=== PATIENT | male | born 1955 | race Caucasian/White ===

== ENCOUNTER 2019-11-03 07:16 | Day surgery (SDC) | payer OTHER ==
[~2019-11-03 07:16] MED LIST: Lactated Ringers 1,000 ML IV SCH; Lidocaine 1%/Sod Bicarbonate in NS 8.4% 1 ML Syringe IDERM PRN; Sodium Chloride 0.9% 10 ML Syringe FLUSH PRN
[2019-11-03] MEDS ORDERED: Lidocaine 1% 4 ML ONE (07:22)
[2019-11-03] MEDS ORDERED: fentaNYL 100 MCG/2 ML SDV ONE (07:23)
[2019-11-03] MEDS ORDERED: Propofol 200 MG/20 ML SDV ONE ×2 (07:23→09:15)
--- NOTE | 2019-11-03 07:36 | PCM.PREANE ---
Preanesthetic Assessment - Anesthesia/Transfusion/Family Hx Anesthesia History: Prior Anesthesia Without Reaction Family History of Anesthesia Reaction: No Transfusion History: No Prior Transfusion(s) Intubation History: Unknown - Review of Systems General: No Symptoms Pulmonary: No Symptoms (COPD, GAYATRI, quit smoking in 2014) Cardiovascular: No Symptoms (IN with stents placed 1999, 2013, HTN, High cholesterol) Gastrointestinal: No Symptoms Neurological: Numbness (left 3rd and 4th fingers missing tips.) Other: Reports: Diabetes (AM blood sugar= 91 @ 0740), Sinus Problem (allergic rhinitis) - Physical Assessment NPO Status Date: 11/02/19 NPO Status Time: 04:30 (prep) Vital Signs: HR: 62 BP: 173/88 Resp: 16 Temp: 97 Sat: 98% Height: 1.78 m Weight: 95 kg ASA Class: 3 Mental Status: Alert & Oriented x3 Airway Class: Mallampati = 2 Dentition: Reports: Normal Dentition, Caries Thyro-Mental Finger Breadths: 3 Mouth Opening Finger Breadths: 3 ROM/Head Extension: Full Lungs: Clear to Auscultation, Normal Respiratory Effort Cardiovascular: Regular Rate, Regular Rhythm, No Murmurs - Lab Values: All labs reviewed and noted and within acceptable ranges to proceed with procedure. - Imaging/EKG Impressions: Echocardiogram: EF= 60-65%, mildly dilated left atrium, mild MV regurgitation. EKG: SB rate=54 - Allergies Allergies/Adverse Reactions: Allergies Allergy/AdvReac Type Severity Reaction Status Date / Time bee venom protein (honey bee) Allergy Cannot Verified 10/31/19 14:24 Remember - Anesthesia Plan Pre-Op Medication Ordered: Beta Leidy Beta Leidy: Carvedilol Med Last Dose Date: 11/01/19 Med Last Dose Time: 05:30 - Acknowledgements Anesthesia Type Planned: MAC Pt an Appropriate Candidate for the Planned Anesthesia: Yes Alternatives and Risks of Anesthesia Discussed w Pt/Guardian: Yes Pt/Guardian Understands and Agrees with Anesthesia Plan: Yes PreAnesthesia Questionnaire HEENT History: Reports: Allergic Rhinitis, Other (See Below) Other HEENT History: left ear cellulitis, hearing loss bilaterally, otitis externa, otosclerosis Cardiovascular History: Reports: CAD, High Cholesterol, Hypertension, [place], Stents Respiratory History: Reports: COPD, Sleep Apnea Gastrointestinal History: Reports: Other (See Below) Other Gastrointestinal History: bloating Genitourinary History: Reports: None 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 Musculoskeletal History: Reports: Arthritis, Gout Neurological History: Reports: None Psychiatric History: Reports: Anxiety, Depression Endocrine/Metabolic History: Reports: Diabetes, Type II Hematologic History: Reports: None Immunologic History: Reports: None Oncologic (Cancer) History: Reports: None Dermatologic History: Reports: None - Past Surgical History Head Surgeries/Procedures: Reports: None HEENT Surgical History: Reports: Other (See Below) Other HEENT Surgeries/Procedures: tymphanoplasty Cardiovascular Surgical History: Reports: None Respiratory Surgical History: Reports: None GI Surgical History: Reports: EGD, Hernia Repair/Other Female Surgical History: Reports: None Male Surgical History: Reports: None Endocrine Surgical History: Reports: None Neurological Surgical History: Reports: None Other Musculoskeletal Surgeries/Procedures:: ankle surgery, finger surgery, clavicle fracture repair Oncologic Surgical History: Reports: None Dermatological Surgical History: Reports: None - SUBSTANCE USE Smoking Status *Q: Current Some Day Smoker Tobacco Use Within Last Twelve Months: Snuff/Dip Recreational Drug Use History: No - HOME MEDS Home Medications: Home Meds Aspirin [Halfprin] 81 mg PO DAILY 02/20/15 [History] Losartan [Cozaar] 37.5 mg PO DAILY 02/20/15 [History] [place]-3S/DHA/Epa/Fish Oil/D3 [Fish Oil + D3 Softgel] 1 tab PO DAILY 02/20/15 [ History] allopurinoL [Zyloprim] 100 mg PO DAILY 02/20/15 [History] metFORMIN [Glucophage] 500 mg PO BID 02/20/15 [History] Colestipol [Colestipol HCl] 1 gm PO BID 10/31/19 [History] EPINEPHrine [Epipen] 1 dose IM ONETIME PRN 10/31/19 [History] [place]-3/DHA/Epa/Fish Oil [[place] 3 500 Softgel] 500 mg PO DAILY 10/31/19 [History ] Ubidecarenone [Coq-10] 200 mg PO DAILY 10/31/19 [History] atorvaSTATin Calcium [Atorvastatin Calcium] 40 mg PO DAILY 10/31/19 [History] buPROPion HCl [Bupropion Xl] 150 mg PO DAILY 10/31/19 [History] carvediloL [Carvedilol] 6.25 mg PO BID 10/31/19 [History] - CURRENT (IN HOUSE) MEDS Current Meds: Current Medications Lactated Ringer's (Ringers, Lactated) 1,000 mls @ 125 mls/hr IV ASDIRECTED APOLINAR Stop: 11/03/19 23:00 Lidocaine/Sodium Bicarbonate (Buffered Lidocaine 1% In Ns 8.4%) 0.25 ml IDERM ONETIME PRN PRN Reason: Prior to IV Start Stop: 11/03/19 18:00 Sodium Chloride (Saline Flush) 10 ml FLUSH ASDIRECTED PRN PRN Reason: Keep Vein Open Stop: 11/03/19 18:00 Discontinued Medications Fentanyl (Sublimaze) Confirm Administered Dose 100 mcg .ROUTE .STK-MED ONE Stop: 11/03/19 07:24 Lidocaine HCl (Xylocaine-Mpf 1%) Confirm Administered Dose 4 mls @ as directed .ROUTE .STK-MED ONE Stop: 11/03/19 07:23 Propofol (Diprivan 20 Ml) Confirm Administered Dose 200 mg .ROUTE .STK-MED ONE Stop: 11/03/19 07:24
--- NOTE | 2019-11-03 07:48 | PCM.HP.2 ---
H&P History of Present Illness - General Date of Service: 11/03/19 Source of Information: Patient History Limitations: Reports: No Limitations - History of Present Illness Other HPI/Comments: presents for screening colonoscopy as scheduled- no changes to health since clinic visit. - Related Data Allergies/Adverse Reactions: Allergies Allergy/AdvReac Type Severity Reaction Status Date / Time bee venom protein (honey bee) Allergy Cannot Verified 10/31/19 14:24 Remember Home Medications: Home Meds Aspirin [Halfprin] 81 mg PO DAILY 02/20/15 [History] Losartan [Cozaar] 37.5 mg PO DAILY 02/20/15 [History] [place]-3S/DHA/Epa/Fish Oil/D3 [Fish Oil + D3 Softgel] 1 tab PO DAILY 02/20/15 [ History] allopurinoL [Zyloprim] 100 mg PO DAILY 02/20/15 [History] metFORMIN [Glucophage] 500 mg PO BID 02/20/15 [History] Colestipol [Colestipol HCl] 1 gm PO BID 10/31/19 [History] EPINEPHrine [Epipen] 1 dose IM ONETIME PRN 10/31/19 [History] [place]-3/DHA/Epa/Fish Oil [[place] 3 500 Softgel] 500 mg PO DAILY 10/31/19 [History ] Ubidecarenone [Coq-10] 200 mg PO DAILY 10/31/19 [History] atorvaSTATin Calcium [Atorvastatin Calcium] 40 mg PO DAILY 10/31/19 [History] buPROPion HCl [Bupropion Xl] 150 mg PO DAILY 10/31/19 [History] carvediloL [Carvedilol] 6.25 mg PO BID 10/31/19 [History] Past Medical History HEENT History: Reports: Allergic Rhinitis, Other (See Below) Other HEENT History: left ear cellulitis, hearing loss bilaterally, otitis externa, otosclerosis Cardiovascular History: Reports: CAD, High Cholesterol, Hypertension, [place], Stents Respiratory History: Reports: COPD, Sleep Apnea Gastrointestinal History: Reports: Other (See Below) Other Gastrointestinal History: bloating Genitourinary History: Reports: None 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 Musculoskeletal History: Reports: Arthritis, Gout Neurological History: Reports: None Psychiatric History: Reports: Anxiety, Depression Endocrine/Metabolic History: Reports: Diabetes, Type II Hematologic History: Reports: None Immunologic History: Reports: None Oncologic (Cancer) History: Reports: None Dermatologic History: Reports: None - Past Surgical History Head Surgeries/Procedures: Reports: None HEENT Surgical History: Reports: Other (See Below) Other HEENT Surgeries/Procedures: tymphanoplasty Cardiovascular Surgical History: Reports: None Respiratory Surgical History: Reports: None GI Surgical History: Reports: EGD, Hernia Repair/Other Female Surgical History: Reports: None Male Surgical History: Reports: None Endocrine Surgical History: Reports: None Neurological Surgical History: Reports: None Other Musculoskeletal Surgeries/Procedures:: ankle surgery, finger surgery, clavicle fracture repair Oncologic Surgical History: Reports: None Dermatological Surgical History: Reports: None Social & Family History - Tobacco Use Smoking Status *Q: Current Some Day Smoker - Caffeine Use Caffeine Use: Reports: Coffee - Recreational Drug Use Recreational Drug Use: No Drug Use in Last 12 Months: No H&P Review of Systems - Review of Systems: Review Of Systems: See Below General: Reports: No Symptoms Exam - Exam Exam: See Below - Vital Signs Vital Signs: Last Vital Signs Temp 36.1 C 11/03/19 07:25 Pulse 62 11/03/19 07:25 Resp 16 11/03/19 07:25 BP 173/88 H 11/03/19 07:25 Pulse Ox 98 11/03/19 07:25 Weight: 95 kg - Exam General: Alert, Oriented GI/Abdominal Exam: Soft, Non-Tender - Patient Data Lab Results Last 24 hrs: Laboratory Results - last 24 hr 11/03/19 Range/Units 07:40 POC Glucose 91 (80-115) mg/dL Sepsis Event Note - Focused Exam Vital Signs: Vital Signs Temp Pulse Resp BP Pulse Ox 11/03/19 07:25 36.1 C 62 16 173/88 H 98 Date Exam was Performed: 11/03/19 Time Exam was Performed: 07:47 *Q Meaningful Use (ADM) - VTE Risk Assess *Q Each Risk Factor Represents 1 Point: None Total Score 1 Point Risk Factors: 0 Problem List Initiated/Reviewed/Updated: Yes Orders Last 24hrs: Active Orders 24 hr Category Date Time Status Blood Glucose Check, Bedside [RC] ONETIME Care 11/03/19 07:38 Active Peripheral IV Care [RC] . DIRECTED Care 11/03/19 00:01 Active Verify Patient Consent Obtain [RC] ASDIRECTED Care 11/03/19 00:01 Active Lactated Ringers [Ringers, Lactated] 1,000 ml Med 11/03/19 00:01 Active IV ASDIRECTED Lidocaine 1%/Sod Bicarbonate [Buffered Lidocaine 1% in Med 11/03/19 00:01 Active NS 8.4%] 0.25 ml IDERM ONETIME PRN Sodium Chloride 0.9% [Saline Flush] Med 11/03/19 00:01 Active 10 ml FLUSH ASDIRECTED PRN Medication Administration Instruction [OM.PC] Routine Oth 11/03/19 00:01 Ordered Peripheral IV Insertion Adult [OM.PC] Routine Oth 11/03/19 00:01 Ordered Medication Orders Lactated Ringer's (Ringers, Lactated) 1,000 mls @ 125 mls/hr IV ASDIRECTED APOLINAR Stop: 11/03/19 23:00 Lidocaine/Sodium Bicarbonate (Buffered Lidocaine 1% In Ns 8.4%) 0.25 ml IDERM ONETIME PRN PRN Reason: Prior to IV Start Stop: 11/03/19 18:00 Sodium Chloride (Saline Flush) 10 ml FLUSH ASDIRECTED PRN PRN Reason: Keep Vein Open Stop: 11/03/19 18:00 Assessment/Plan Comment:: screening colonoscopy today - Mortality Measure Prognosis:: Good
--- NOTE | 2019-11-03 08:30 | PCM.PRNOTE ---
- Free Text/Narrative Note: Date: 11/03/2019 Procedure: screening colonoscopy Endoscopist: Wally Rodriguez MD Findings: excellent prep. Terminal ileum intubated. Single pedunculated polyp in the ascending colon resected entirely in piecemeal fashion with based cauterized. Detailed report: The patient was taken to the endoscopy suite and timeout was performed. She was placed in left lateral decubitus position, and monitored anesthesia was initiated. Visual inspection of the anus showed no abnormality, digital rectal exam was unremarkable. The colonoscope was advanced all the way to the terminal ileum. The ileocecal valve was passed, and small bowel mucosa visualized. The prep was excellent. The scope was withdrawn slowly and mucosal surfaces inspected. A single roughly 1 cm pedunculated polyp was noted in the ascending colon. This was removed in piecemeal fashion entirely using the biopsy forceps. The base of the polyp was cauterized. Specimen was sent to pathology. The remainder of the colon appeared normal, without evidence of disease. The patient tolerated the procedure well. Wally Rodriguez MD General Surgery
[2019-11-03] MEDS ORDERED: Midazolam 1 MG/ML 2 ML SDV ONE (08:40)
--- NOTE | 2019-11-03 09:30 | PCM48HPAN ---
Post Anesthesia Note - EVALUATION WITHIN 48HRS OF ANESTHETIC Vital Signs in Normal Range: Yes Patient Participated in Evaluation: Yes Respiratory Function Stable: Yes Airway Patent: Yes Cardiovascular Function Stable: Yes Hydration Status Stable: Yes Pain Control Satisfactory: Yes Nausea and Vomiting Control Satisfactory: Yes Mental Status Recovered: Yes Vital Signs: Last Vital Signs Temp 97.0 F 11/03/19 07:25 Pulse 62 11/03/19 07:25 Resp 16 11/03/19 07:25 BP 173/88 H 11/03/19 07:25 Pulse Ox 98 11/03/19 07:25 97/61 53 12 97.2 97/61
--- NOTE | 2019-11-03 09:39 | PCM.PRNOTE ---
- Free Text/Narrative Note: Date: 11/03/2019 Procedure: screening colonoscopy Endoscopist: Wally Rodriguez MD Findings: very good prep. terminal ileum intubated. Diverticular disease in descending/sigmoid colon, many filled with stool balls. Small pedunculated polyp in sigmoid colon removed. Detailed report: Patient was taken to the endoscopy suite and placed in left lateral decubitus position. Timeout was performed, and monitored anesthesia was initiated. Visual inspection of the anus was unremarkable, digital rectal exam was normal, with prostate feeling normal. The colonoscope was advanced all the way to the ileocecal valve, and the terminal ileum was intubated. Prep was overall very good, however there were a few solid stool balls associated with diverticular disease. The colonoscope was withdrawn slowly and mucosal surfaces inspected, a single small pedunculated polyp was noted in the sigmoid colon. This was removed using the snare, and the base of the polyp was cauterized. The specimen was collected, and sent to pathology. Aside from diverticular disease , no additional pathology was noted. No hemorrhoids noted on retroflexion of the scope in the rectum. The patient tolerated the procedure well. Wally Rodriguez MD General Surgery
[2019-11-03 09:58] VITALS: BP 127/79; PULSE 50
== END 2019-11-03 10:05 | disposition home or self-care (01) ==
LOC: JD.SDS 07:16
PROVIDERS: ATTEND Surgery
DX: Z12.11 Encounter for screening for malignant neoplasm of colon (principal); D12.5 Benign neoplasm of sigmoid colon; I25.10 Atherosclerotic heart disease of native coronary artery without angina pectoris; E78.00 Pure hypercholesterolemia, unspecified; J44.9 Chronic obstructive pulmonary disease, unspecified; I10 Essential (primary) hypertension; M19.90 Unspecified osteoarthritis, unspecified site; M10.9 Gout, unspecified; E11.9 Type 2 diabetes mellitus without complications; F32.9 Major depressive disorder, single episode, unspecified; F17.210 Nicotine dependence, cigarettes, uncomplicated; Z91.030 Bee allergy status; Z79.82 Long term (current) use of aspirin; Z79.899 Other long term (current) drug therapy; Z79.84 Long term (current) use of oral hypoglycemic drugs
CPT/HCPCS: 45385; 82962; J2001; J2250; J2704; J3010; J7120; 00812

== ENCOUNTER 2022-05-14 12:35 | Emergency (ER) | payer OTHER ==
[2022-05-14] MEDS ORDERED: Sodium Chloride 0.9% 10 ML Syringe FLUSH PRN (13:00)
[2022-05-14] MEDS ORDERED: Sodium Chloride 0.9% 1,000 ML IV ONE (13:45)
[2022-05-14 17:11] VITALS: BP 122/79; PULSE 54
== END 2022-05-14 17:00 | disposition home or self-care (01) ==
LOC: JD.ED 12:35
DX: R07.89 Other chest pain (principal); I25.10 Atherosclerotic heart disease of native coronary artery without angina pectoris; E78.00 Pure hypercholesterolemia, unspecified; I10 Essential (primary) hypertension; I25.2 Old myocardial infarction; J44.9 Chronic obstructive pulmonary disease, unspecified; M10.9 Gout, unspecified; Z91.030 Bee allergy status; Z79.82 Long term (current) use of aspirin; Z79.899 Other long term (current) drug therapy; Z79.84 Long term (current) use of oral hypoglycemic drugs
CPT/HCPCS: 36415; 71045; 80053; 83735; 83880; 84484; 85025; 85379; 85610; 85730; 93005; 96360; 99285; J3490; J7030

== ENCOUNTER 2024-06-10 08:47 | Day surgery (SDC) | payer OTHER ==
[~2024-06-10 08:47] MED LIST changes: -Lactated Ringers 1,000 ML IV SCH; -Lidocaine 1%/Sod Bicarbonate in NS 8.4% 1 ML Syringe IDERM PRN; +Sodium Chloride 0.9% 10 ML Syringe FLUSH SCH
[2024-06-10] MEDS ORDERED: Midazolam 1 MG/ML 2 ML SDV ONE (08:51)
[2024-06-10] MEDS ORDERED: Propofol 200 MG/20 ML SDV ONE ×3 (08:51→09:45)
[2024-06-10] MEDS: Lactated Ringers 1,000 ML IV SCH (08:55)
[2024-06-10] MEDS ORDERED: Lidocaine 1% PF 2 ML SDV ONE ×2 (08:57)
[2024-06-10] MEDS ORDERED: Lidocaine 1% 4 ML ONE (08:57)
[2024-06-10 11:10] VITALS: BP 132/74; PULSE 54
== END 2024-06-10 11:02 | disposition home or self-care (01) ==
LOC: JD.SDS 08:47
PROVIDERS: ATTEND Surgery
DX: Z12.11 Encounter for screening for malignant neoplasm of colon (principal); K64.0 First degree hemorrhoids; I25.10 Atherosclerotic heart disease of native coronary artery without angina pectoris; I10 Essential (primary) hypertension; E11.9 Type 2 diabetes mellitus without complications; J44.9 Chronic obstructive pulmonary disease, unspecified; E78.00 Pure hypercholesterolemia, unspecified; F32.A Depression, unspecified; G47.33 Obstructive sleep apnea (adult) (pediatric); F17.210 Nicotine dependence, cigarettes, uncomplicated; Z85.038 Personal history of other malignant neoplasm of large intestine; Z80.0 Family history of malignant neoplasm of digestive organs; Z79.82 Long term (current) use of aspirin; Z79.899 Other long term (current) drug therapy; Z91.030 Bee allergy status
CPT/HCPCS: 45378; J2250; J2704; J7120; J3490